=== PATIENT | male | born 1945 | race Caucasian/White ===

== ENCOUNTER 2018-02-02 09:00 | Inpatient (IN) | payer MEDICAID ==
[~2018-02-02] VITALS: Ht 172.7 cm; Wt 78.5 kg
[2018-02-02] VITALS (44 sets, daily range): BP systolic 62–125; BP diastolic 32–82
[2018-02-02] MEDS ORDERED: IV NORMAL SALINE 1000 ML BAG IV ONE ×2 (09:15→10:30)
--- NOTE | 2018-02-02 09:24 | NUR ---
rt at bedside to suction the pt.
[2018-02-02 09:42] LABS: CARBON DIOXIDE 22 mmol/L (21-32); CHLORIDE 104 mmol/L (98-107); CREATININE 1.2 mg/dL (0.6-1.3); GLUCOSE 177 mg/dL (74-106); POTASSIUM 3.2 mmol/L (3.5-5.1); UREA NITROGEN, BLOOD 25 mg/dL (7-18)
[2018-02-02 09:43] LABS: BASOPHILS # (AUTO) 0.1 K/uL (0.0-8.0); BASOPHILS % (AUTO) 0.2 % (0.0-2.0); EOSINOPHILS # (AUTO) 0.2 K/uL (0.0-0.7); HEMATOCRIT 41.4 % (36.7-47.1)
[2018-02-02 09:45] LABS: EOSINOPHILS % (AUTO) 0.6 % (0.0-7.0); LYMPHOCYTES # (AUTO) 3.9 K/uL (20.0-40.0); LYMPHOCYTES % (AUTO) 12.9 % (20.5-51.5); MEAN CORPUSCULAR HEMOGLOBIN 32.7 uug (23.8-33.4); MEAN CORPUSCULAR HGB CONC 34 g/dL (32.5-36.3); MEAN CORPUSCULAR VOLUME 96.9 fL (73.0-96.2); MONOCYTES # (AUTO) 0.9 K/uL (2.0-10.0); MONOCYTES % (AUTO) 3.2 % (0.0-11.0); NEUTROPHILS # (AUTO) 25.1 K/uL (1.8-8.9); NEUTROPHILS % (AUTO) 83.1 % (38.5-71.5); PLATELET COUNT (AUTO) 313 K/uL (152-348); RED BLOOD CELL COUNT(AUTO) 4.27 MIL/uL (4.06-5.63)
[2018-02-02] MEDS ORDERED: METO25TA6 PO (09:46)
[2018-02-02] MEDS ORDERED: ALBU2.5V38 NEB (09:46)
[2018-02-02] MEDS ORDERED: ACET-2154 GT (09:46)
[2018-02-02] MEDS ORDERED: CRAN3875 GT (09:46)
[2018-02-02] MEDS ORDERED: AMLO10TA2 GT (09:46)
[2018-02-02] MEDS ORDERED: FURO-151 GT (09:46)
[2018-02-02] MEDS ORDERED: RANI150T43 GT (09:46)
[2018-02-02] MEDS ORDERED: OXYC5TAB3 GT (09:46)
[2018-02-02] MEDS ORDERED: DEXT1DRO3 EACHEYE (09:46)
[2018-02-02] MEDS ORDERED: ASPI81TA31 GT (09:46)
[2018-02-02] MEDS ORDERED: MULT-213 GT (09:46)
[2018-02-02] MEDS ORDERED: ACET-2605 GT (09:46)
[2018-02-02] MEDS ORDERED: IPRA0.2S6 NEB (09:46)
[2018-02-02] MEDS ORDERED: MAGN400O6 GT (09:46)
[2018-02-02] MEDS ORDERED: DOCU-141 GT (09:46)
[2018-02-02 09:52] LABS: WHITE BLOOD COUNT (AUTO) 30.1 K/uL (3.6-10.2)
[2018-02-02 09:55] LABS: THYROID STIMULATING HORMONE 4.783 mIU/mL (0.358-3.740)
[2018-02-02 09:59] LABS: ALANINE AMINOTRANSFERASE 32 U/L (16-63); ALKALINE PHOSPHATASE 168 U/L (50-136); ASPARTATE AMINOTRANSFERASE 32 U/L (15-37); BILIRUBIN,DIRECT 0.2 mg/dL (0.0-0.2); BILIRUBIN,TOTAL 0.8 mg/dL (0.2-1.0); TOTAL PROTEIN, SERUM 7.9 g/dL (6.4-8.2)
[2018-02-02] MEDS ORDERED: AZITHROMYCIN IV 500 MG in IV DEXTROSE 5% 250 ML IV ONE (10:00)
[2018-02-02] MEDS ORDERED: CEFTRIAXONE 1 G in IV DEXTROSE 5% 50 ML IV ONE (10:00)
--- NOTE | 2018-02-02 10:06 | NUR ---
mouna hunt called dr. bahena for consult. dr. bahena not available.
[2018-02-02] MEDS ORDERED: AZITHROMYCIN 500 MG VIAL IV ONE (10:10)
[2018-02-02] MEDS ORDERED: LEVETIRACETAM 500 MG/5 ML VIAL IV ONE (10:10)
[2018-02-02] MEDS ORDERED: CEFTRIAXONE 1 G VIAL ONE (10:11)
[2018-02-02] MEDS ORDERED: LEVETIRACETAM IV 500 MG in IV DEXTROSE 5% 100 ML IV ONE (10:15)
[2018-02-02 10:19] LABS: ABG BASE EXCESS -7.9 mmol/L; ABG HCO3 17.5 mmol/L; ABG PCO2 35.8 mmHg (35.0-45.0); ABG PH 7.308 (7.350-7.450); ABG PO2 60.3 mmHg (75.0-100.0); ABG SITE LEFT RADIAL; ABG TOTAL HEMOGLOBIN 13.3 G/dL (13.5-18.0); COHb 1.3 % (0.5-1.5); MetHb 0.2 % (0.0-1.5); O2Hb 88.1 % (94.0-97.0)
[2018-02-02] MEDS ORDERED: NOREPINEPHRINE BITARTRATE 4 MG in IV DEXTROSE 5% 250 ML IV ONE (10:30)
[2018-02-02] MEDS ORDERED: PIPERACILLIN SODIUM/TAZOBACTAM 3.375 G in IV DEXTROSE 5% 50 ML IV ONE (10:30)
[2018-02-02 10:42] LABS: *BILIRUBIN,URIN NEGATIVE (NEGATIVE); *BLOOD, URINE 2+ (NEGATIVE); *CLARITY,URINE CLOUDY (CLEAR); *COLOR,URINE YELLOW (YELLOW); *KETONES,URINE NEGATIVE (NEGATIVE); *PROTEIN,URINE 1+ (NEGATIVE); *UROBILINOGEN,URINE 0.2 E.U./dl (NORMAL); LEUKOCYTE ESTERASE ,URINE 3+ (NEGATIVE); NITRITE, URINE NEGATIVE (NEGATIVE); PH,URINE 6.5 (5.0-8.0); UGLUCOSE NEGATIVE (NEGATIVE)
[2018-02-02 11:02] LABS: BACTERIA,URINE MODERATE /HPF (NONE SEEN); SQUAMOUS EPITHELIAL CELL,UR FEW /HPF (NONE SEEN); WBC,URINE TNTC /HPF (0-3)
[2018-02-02] MEDS ORDERED: PIPERACILLIN/TAZOBACTAM/D5W 50 ML IV ONE (11:16)
--- NOTE | 2018-02-02 11:21 | NUR ---
Nikki bourne in [facility] - 02/02/18 at 1252 by JESSICA increased the levophed to 10mcg/min
[2018-02-02 11:25] LABS: BAND % (MANUAL) 7 % (0-10); LYMPHOCYTES % (MANUAL) 9 % (20-40); MONOCYTES % (MANUAL) 2 % (2-10); NEUTROPHILS % (MANUAL) 82 % (42-75)
--- NOTE | 2018-02-02 11:43 | NUR ---
increased the levophed drip from 5 to 8mcg to maintain the desired bp.
--- NOTE | 2018-02-02 12:20 | NUR ---
the colostomy bag the pt came with is leaking. removed it, cleansed the area and placed a new one. small amount fresh blood noticed at the stoma.
--- NOTE | 2018-02-02 12:21 | NUR ---
increased the levphed to 10 mcg/min
--- NOTE | 2018-02-02 12:56 | NUR ---
At this time patient patient brought in from ER levophed with concentration of 4mg /250 at 10mcg/min. SBP 81/47, HR, 94, RR 22. temp of 97.6 Axillary. IV line to RFA G 20 infiltrated. Skip Ray notified. Awaiting for Central line insertion.
[2018-02-02] MEDS ORDERED: NOREPINEPHRINE BITARTRATE 8 MG in IV DEXTROSE 5% 500 ML IV ONE (13:15)
--- NOTE | 2018-02-02 13:59 | NUR ---
Dr. Valdivia in the unit to examine patient. report given.
--- NOTE | 2018-02-02 14:50 | NUR ---
Chest xray for Central line. line placement done at this time Dr. Valdivia present orders to use Central line received.
[2018-02-02] MEDS ORDERED: ONDANSETRON 4 MG/2 ML VIAL IV PRN (15:00)
[2018-02-02] MEDS ORDERED: VANCOMYCIN IV 1 G in PREMIXED 0 EACH IV SCH (15:00)
--- NOTE | 2018-02-02 15:13 | NUR ---
CLINICAL PHARMACY NOTE: VANCOMYCIN DOSING Request for vancomycin dosing on 72 y/o male 5'8" 160 lbs for sepsis Temp 98.5 BUN 25 Scr 1.2 WBC 30.1 bands 7 also on Merrem. Start vancomycin 1gm ivpb q18 hours estimated trough 14.97. Will order trough level prior to 4th dose. Will continue to monitor
[2018-02-02] MEDS: MEROPENEM 1 G in IV NORMAL SALINE 100 ML IV SCH ×2 (15:23→21:10)
--- NOTE | 2018-02-02 15:25 | NUR ---
ZITHROMAX not administered pt. in from E.R. at 1256. pharmacist notified of pt's time of arrival to unit as report obtained from Er. rn. no endorsement to follow up administration received.
[2018-02-02] MEDS: IV NS 1000 ML 1,000 ML IV PRN (15:33)
[2018-02-02] MEDS: NOREPINEPHRINE BITARTRATE 8 MG in IV DEXTROSE 5% 500 ML IV PRN (16:06)
[2018-02-02] MEDS: VANCOMYCIN IV 1 G in PREMIXED 0 EACH IV SCH (17:19)
--- NOTE | 2018-02-02 20:00 | NUR ---
More awake with eyes open; does not follow commands. Resp easy and regular. O2 15 L/min @ 60 % FIO2 per trach collar. Remains on Levophed drip for BP maintenance, NS at 150 ml/hr for hydration. NPO, GTube is clamped. Active colostomy, has liquid stools. Noted extravasation on right antecubital/forearm area at previous Levophed site. Appropriate nursing care rendered to site and Dr. Ray notified. Nursing comfort measures observed at all times. Aspiration precautions maintained. Please see CCU flowsheet for full assessment and clinical data.
[2018-02-02] MEDS: HYDROCORTISONE SOD SUCCINATE 100 MG/2 ML VIAL IV SCH (20:04)
[2018-02-02] MEDS: ENOXAPARIN SODIUM 40 MG/0.4 ML DISP.SYRIN SQ SCH (21:10)
[2018-02-02] MEDS ORDERED: NITROGLYCERIN OINT 1 GM PACKET TP ONE ×2 (22:45→23:15)
[2018-02-03] VITALS (72 sets, daily range): BP systolic 80–120; BP diastolic 40–74
--- NOTE | 2018-02-03 00:01 | NUR ---
Right forearm noted looking much improved. Pt's BP readily drops with Nitrobid application and Levophed titrated accordingly. Please see VS trends.
[2018-02-03] MEDS: IV NS 1000 ML 1,000 ML IV PRN ×3 (00:42→15:09)
[2018-02-03] MEDS ORDERED: NOREPINEPHRINE BITARTRATE 4 MG/4 ML VIAL IV ONE (02:02)
--- NOTE | 2018-02-03 03:30 | NUR ---
RT attempted to wean down O2 to 40% with no success. O2 sat down as low as 90% and thus returned to baseline FIO2 60%. Will continue to monitor closely.
[2018-02-03] MEDS: NOREPINEPHRINE BITARTRATE 8 MG in IV DEXTROSE 5% 500 ML IV PRN ×3 (04:01→15:08)
[2018-02-03] MEDS: NITROGLYCERIN OINT 1 GM PACKET TP SCH ×5 (04:02→20:36)
[2018-02-03] MEDS: Z GUARD REMEDY PASTE 57 GM TUBE TOP PRN ×2 (04:04→20:36)
[2018-02-03 05:21] LABS: BASOPHILS % (AUTO) 0.1 % (0.0-2.0); HEMATOCRIT 29.3 % (36.7-47.1); HEMOGLOBIN 9.9 g/dL (12.5-16.3); LYMPHOCYTES # (AUTO) 1.3 K/uL (20.0-40.0); LYMPHOCYTES % (AUTO) 5.5 % (20.5-51.5); MEAN CORPUSCULAR HEMOGLOBIN 32.3 uug (23.8-33.4); MEAN CORPUSCULAR HGB CONC 34 g/dL (32.5-36.3); MEAN CORPUSCULAR VOLUME 95.9 fL (73.0-96.2); MONOCYTES # (AUTO) 1.3 K/uL (2.0-10.0); MONOCYTES % (AUTO) 5.3 % (0.0-11.0); NEUTROPHILS # (AUTO) 21.7 K/uL (1.8-8.9); NEUTROPHILS % (AUTO) 89.1 % (38.5-71.5); PLATELET COUNT (AUTO) 161 K/uL (152-348); RED BLOOD CELL COUNT(AUTO) 3.06 MIL/uL (4.06-5.63); WHITE BLOOD COUNT (AUTO) 24.4 K/uL (3.6-10.2)
[2018-02-03 05:27] LABS: ALANINE AMINOTRANSFERASE 28 U/L (16-63); ALKALINE PHOSPHATASE 100 U/L (50-136); ASPARTATE AMINOTRANSFERASE 27 U/L (15-37); BILIRUBIN,TOTAL 0.4 mg/dL (0.2-1.0); CARBON DIOXIDE 17 mmol/L (21-32); CHLORIDE 110 mmol/L (98-107); CHOLESTEROL 68 mg/dL (<200); CREATININE 1.6 mg/dL (0.6-1.3); GLUCOSE 185 mg/dL (74-106); HDL CHOLESTEROL 29 mg/dL (40-60); MAGNESIUM 1.4 mg/dL (1.8-2.4); PHOSPHOROUS 3.4 mg/dL (2.5-4.9); POTASSIUM 3.7 mmol/L (3.5-5.1); TOTAL PROTEIN, SERUM 5.6 g/dL (6.4-8.2); TRIGLYCERIDES 46 MG/DL (30-150); UREA NITROGEN, BLOOD 33 mg/dL (7-18)
[2018-02-03] MEDS: MEROPENEM 1 G in IV NORMAL SALINE 100 ML IV SCH ×3 (05:32→22:41)
--- NOTE | 2018-02-03 06:00 | NUR ---
Tolerated well AM care procedures. Please see CCU flowsheet and IV spreadsheet for trends and clinical data.
[2018-02-03] MEDS: HYDROCORTISONE SOD SUCCINATE 100 MG/2 ML VIAL IV SCH (08:26)
[2018-02-03] MEDS: FLUDROCORTISONE ACETATE 0.1 MG TABLET PO SCH (08:27)
[2018-02-03] MEDS: ACETAMINOPHEN 650 MG SUPP.RECT RC PRN (08:36)
--- NOTE | 2018-02-03 12:52 | NUR ---
Dr. Skip Ray in the unit to examine patient, full report given.
[2018-02-03] MEDS: VANCOMYCIN IV 1 G in PREMIXED 0 EACH IV SCH (14:58)
[2018-02-03] MEDS: MAGNESIUM SULFATE/D5W 100 ML IV SCH ×2 (15:03→15:52)
--- NOTE | 2018-02-03 15:16 | NUR ---
Clinical pharmacy note-Vancomycin dosing per pharmacy Subjective: To continue Vancomycin dosing on this patient for sepsis(septic shock) with UTI. Objective; BUN 33 Scr 1.6 WBC 24.4 Temp 100.5 Ht 5'8" Wt 165 lbs Assessment/Plan: Since renal function is further decreased(1.6 vs 1.2), will decrease dose to 1gram every 22hrs from 1 gram every 18hrs. Second dose will be tomorrow at 1300. Vancomycin trough by 4th dose(not ordered yet) for expected trough around 15. Will monitor renal function closely to adjust the dose if needed. Otherwise will follow the trough for further dosing.
--- NOTE | 2018-02-03 20:00 | NUR ---
Eyes open but does not follow commands. Trach intact, midline. On cool mist titrated O2 down to 50%. Trach secretions large to moderate thick yellow secretions, pink tinged. Off vasopressor. NPO with GTube intact. Will need to address nutritional support. Turned/positioned q 2hr and PRN. Nursing comfort measures observed at all times.
[2018-02-03] MEDS: ENOXAPARIN SODIUM 40 MG/0.4 ML DISP.SYRIN SQ SCH (20:37)
--- NOTE | 2018-02-03 20:40 | NUR ---
PT ON CONT P/MIST WITH SHILEY #6 TRACH/ SUCTIONED PINKISH TINGE SECRETIONS, VERY LIGHT BLOODY STREAK, TITRATE TO 50%, GOOD OXYGENATION , SAT 98%. Ever MCKEONP Addendum: 02/03/18 at 2040 by MARY RAMOS RT Amended: Links added.
[2018-02-04] VITALS (43 sets, daily range): BP systolic 86–155; BP diastolic 40–76
[2018-02-04] MEDS: IV NS 1000 ML 1,000 ML IV PRN ×3 (00:03→18:18)
[2018-02-04 05:10] LABS: BASOPHILS % (AUTO) 0.2 % (0.0-2.0); EOSINOPHILS # (AUTO) 0.2 K/uL (0.0-0.7); EOSINOPHILS % (AUTO) 1.3 % (0.0-7.0); HEMATOCRIT 22.6 % (36.7-47.1); HEMOGLOBIN 7.6 g/dL (12.5-16.3); LYMPHOCYTES # (AUTO) 1.3 K/uL (20.0-40.0); LYMPHOCYTES % (AUTO) 8.1 % (20.5-51.5); MEAN CORPUSCULAR HEMOGLOBIN 32.4 uug (23.8-33.4); MEAN CORPUSCULAR HGB CONC 34 g/dL (32.5-36.3); MEAN CORPUSCULAR VOLUME 95.9 fL (73.0-96.2); MONOCYTES # (AUTO) 1.1 K/uL (2.0-10.0); MONOCYTES % (AUTO) 7.1 % (0.0-11.0); NEUTROPHILS % (AUTO) 83.3 % (38.5-71.5); PLATELET COUNT (AUTO) 94 K/uL (152-348); WHITE BLOOD COUNT (AUTO) 15.6 K/uL (3.6-10.2)
[2018-02-04 05:23] LABS: RED BLOOD CELL COUNT(AUTO) 2.35 MIL/uL (4.06-5.63)
[2018-02-04 05:30] LABS: CARBON DIOXIDE 18 mmol/L (21-32); CHLORIDE 115 mmol/L (98-107); CREATININE 0.9 mg/dL (0.6-1.3); GLUCOSE 100 mg/dL (74-106); MAGNESIUM 1.9 mg/dL (1.8-2.4); PHOSPHOROUS 1.6 mg/dL (2.5-4.9); POTASSIUM 3.3 mmol/L (3.5-5.1); UREA NITROGEN, BLOOD 23 mg/dL (7-18)
--- NOTE | 2018-02-04 06:00 | NUR ---
Continues to have large thick yellow blood-tinged secretions; frequent oral and trach care done. Able to cough up secretions. Remains on low dose Levophed, will continue to observe closely. Please see CCU flowsheet for trends and clinical data.
[2018-02-04] MEDS: Z GUARD REMEDY PASTE 57 GM TUBE TOP PRN (06:34)
[2018-02-04] MEDS: MEROPENEM 1 G in IV NORMAL SALINE 100 ML IV SCH ×3 (06:34→21:53)
[2018-02-04] MEDS: HYDROCORTISONE SOD SUCCINATE 100 MG/2 ML VIAL IV SCH (08:16)
[2018-02-04] MEDS: FLUDROCORTISONE ACETATE 0.1 MG TABLET PO SCH (08:17)
--- NOTE | 2018-02-04 09:45 | NUR ---
A call from Nemesio Wagner [facility]. [phone] Nemesio requested and update on pt's condition. Addendum: 02/04/18 at 1739 by ISRAEL MCCONNELL RN Nemesio left a number to call if patient down graded for transfer. [phone].
--- NOTE | 2018-02-04 10:02 | NUR ---
Clinical pharmacy note-Vancomycin dosing per pharmacy Subjective: To continue Vancomycin dosing on this patient for sepsis(septic shock) with UTI. Objective; BUN 23 Scr 0.9 WBC 15.6 Temp 98.1 Ht 5'8" Wt 165 lbs Assessment/Plan: Since renal function drastically improved (1.6 to 0.9 today), will increase regimen to 1gram every 14hr from 1 gram every 22hrs. First dose today at 1000. Vancomycin trough by 4th dose(not ordered yet) for expected trough around 15. Will monitor renal function closely to adjust the dose if needed. Otherwise will follow the trough for further dosing.
--- NOTE | 2018-02-04 10:30 | NUR ---
Dr. Skip maxwell in the unit to examine patient; full report given.
[2018-02-04] MEDS: VANCOMYCIN IV 1 G in PREMIXED 0 EACH IV SCH (10:49)
--- NOTE | 2018-02-04 10:59 | NUR ---
DR. Wells in the unit to examine patient, report given orders received and carried out. See order history.
--- NOTE | 2018-02-04 12:00 | NUR ---
Dr. Wells in the unit to examine patient; full report given orders received and carried out.
[2018-02-04] MEDS: POTASSIUM CHLORIDE 50 ML IV SCH ×2 (12:08→13:01)
[2018-02-04] MEDS ORDERED: VANCOMYCIN IV 1 G in PREMIXED 0 EACH IV SCH (13:00)
[2018-02-04] MEDS ORDERED: SODIUM PHOSPHATE MM 15 MM in IV DEXTROSE 5% 250 ML IV ONE (16:30)
--- NOTE | 2018-02-04 17:34 | NUR ---
A call from Dipika Smith pillowcase maker at [facility] A# [phone]. Full update on pt's condition given she was also informed that patient still under ICU observation.
[2018-02-04] MEDS: ENOXAPARIN SODIUM 40 MG/0.4 ML DISP.SYRIN SQ SCH (21:51)
--- NOTE | 2018-02-04 22:53 | NUR ---
Noted elevation in temperature and new onset of uticaria to upper extremities. Stopped blood transfusion immediately and called MD. Orders received and implemented. Will continue to monitor.
[2018-02-04] MEDS ORDERED: diphenhydrAMINE 50 MG/1 ML VIAL IV PRN (23:00)
[2018-02-04] MEDS: ACETAMINOPHEN 650 MG SUPP.RECT RC PRN (23:00)
[2018-02-05] VITALS (12 sets, daily range): BP systolic 99–151; BP diastolic 43–86
[2018-02-05] MEDS: VANCOMYCIN IV 1 G in PREMIXED 0 EACH IV SCH ×2 (00:20→14:11)
[2018-02-05] MEDS: IV NS 1000 ML 1,000 ML IV PRN ×2 (00:21→09:18)
--- NOTE | 2018-02-05 00:27 | NUR ---
Per protocol, blood samples obtained via venipuncture by receiving lead for repeat ABO and direct antiglobulin test as well as urine specimen via Lane cath port for UA. Awaiting results. Continue to monitor.
--- NOTE | 2018-02-05 01:00 | NUR ---
Patient remains stable and in no acute distress. Continue close monitoring.
[2018-02-05 01:08] LABS: *BILIRUBIN,URIN NEGATIVE (NEGATIVE); *BLOOD, URINE 2+ (NEGATIVE); *CLARITY,URINE SLIGHTLY CLOUDY (CLEAR); *COLOR,URINE YELLOW (YELLOW); *KETONES,URINE 1+ (NEGATIVE); *PROTEIN,URINE 2+ (NEGATIVE); *UROBILINOGEN,URINE 0.2 E.U./dl (NORMAL); LEUKOCYTE ESTERASE ,URINE NEGATIVE (NEGATIVE); NITRITE, URINE NEGATIVE (NEGATIVE); UGLUCOSE NEGATIVE (NEGATIVE)
[2018-02-05 01:42] LABS: BACTERIA,URINE NONE SEEN /HPF (NONE SEEN); MUCUS,URINE FEW /LPF (0-FEW); RBC,URINE 50-80 /HPF (0-3); SQUAMOUS EPITHELIAL CELL,UR FEW /HPF (NONE SEEN)
[2018-02-05 05:37] LABS: BASOPHILS % (AUTO) 0.3 % (0.0-2.0); EOSINOPHILS # (AUTO) 0.6 K/uL (0.0-0.7); EOSINOPHILS % (AUTO) 5.1 % (0.0-7.0); HEMATOCRIT 21.7 % (36.7-47.1); LYMPHOCYTES # (AUTO) 1.3 K/uL (20.0-40.0); MEAN CORPUSCULAR HEMOGLOBIN 32.3 uug (23.8-33.4); MEAN CORPUSCULAR HGB CONC 34 g/dL (32.5-36.3); MEAN CORPUSCULAR VOLUME 95.1 fL (73.0-96.2); MONOCYTES # (AUTO) 0.8 K/uL (2.0-10.0); MONOCYTES % (AUTO) 7.3 % (0.0-11.0); NEUTROPHILS # (AUTO) 8.8 K/uL (1.8-8.9); NEUTROPHILS % (AUTO) 76.3 % (38.5-71.5); PLATELET COUNT (AUTO) 81 K/uL (152-348); WHITE BLOOD COUNT (AUTO) 11.6 K/uL (3.6-10.2)
[2018-02-05 05:45] LABS: HEMOGLOBIN 7.4 g/dL (12.5-16.3); RED BLOOD CELL COUNT(AUTO) 2.28 MIL/uL (4.06-5.63)
[2018-02-05 05:58] LABS: CARBON DIOXIDE 19 mmol/L (21-32); CHLORIDE 116 mmol/L (98-107); CREATININE 0.8 mg/dL (0.6-1.3); GLUCOSE 80 mg/dL (74-106); MAGNESIUM 1.8 mg/dL (1.8-2.4); PHOSPHOROUS 1.6 mg/dL (2.5-4.9); UREA NITROGEN, BLOOD 16 mg/dL (7-18)
[2018-02-05] MEDS: MEROPENEM 1 G in IV NORMAL SALINE 100 ML IV SCH ×2 (06:08→13:18)
--- NOTE | 2018-02-05 07:15 | NUR ---
Report received from Carlotta MARINA, 72 yr old male was admitted on 02/02/18 for Sepsis and UTI. Patient had been off levophed 24hrs ago. Patient is awake but aphasic. can only say nooooo. moves right hand purposefully. O2 at 40% fio2 10liter flow/min. has a lot of secretions able to cough . tracheostomy tube intact portex #6. ekg sinus rhythm with pacs. IV NS infusing at 150ml/hr. crews catheter intact. Addendum: 02/05/18 at 1152 by RACHEAL MCKENZIE RN Amended: Links added.
[2018-02-05] MEDS: HYDROCORTISONE SOD SUCCINATE 100 MG/2 ML VIAL IV SCH (08:52)
[2018-02-05] MEDS: FLUDROCORTISONE ACETATE 0.1 MG TABLET PO SCH (08:52)
[2018-02-05] MEDS: POTASSIUM PHOSPHATE MM 7.5 MMOL in IV DEXTROSE 5% 100 ML IV SCH ×2 (10:54→14:11)
--- NOTE | 2018-02-05 11:00 | NUR ---
kphosphate started for replacement. 1st bag of 2 hung Addendum: 02/05/18 at 1206 by RACHEAL MCKENZIE RN Amended: Links added.
--- NOTE | 2018-02-05 12:00 | NUR ---
PT FIO2 WAS TITRATED DONE TO 40% PER RN REQUEST. RT WILL TITRATED DOWN WITH MD ORDER TO TITRATED FIO2. PT TOLERATED WELL NO DISTRESS NOTED PT SPO2 99% NO DISTRESS NOTED . PT TRACH CARE WAS DONE PT WAS SUCTION WILL CONTINUE TO MONITOR PT. PT TRACH SECURED AND INTACT WITH TIE.
--- NOTE | 2018-02-05 12:00 | NUR ---
Patient in to room 203 from ICU observation vital signs stable. see vital signs documentation. patient in with Central line infusion with Normal saline at 150cc/hr. KPHOS replacement running. Will continue with plan of care.
--- NOTE | 2018-02-05 12:20 | NUR ---
transferred to room 203 [facility] bed Addendum: 02/05/18 at 1227 by RACHEAL MCKENZIE RN Amended: Links added.
[2018-02-05] MEDS ORDERED: CEFT1VIA15 IV (13:31)
--- NOTE | 2018-02-05 13:46 | NUR ---
Clinical pharmacy note-Vancomycin dosing per pharmacy Subjective: To continue Vancomycin dosing on this patient for sepsis(septic shock) with UTI. Objective; BUN 16 Scr 0.8 WBC 11.6 Temp 99.6 Ht 5'8" Wt 165 lbs Assessment/Plan: Since renal function is stable, will continue 1gram every 14hr .Third dose today at 1400. Vancomycin trough by 4th dose(ordered for tomorrow at 0330) for expected trough around 15. Will monitor renal function closely to adjust the dose if needed. Otherwise will follow the trough for further dosing.
--- NOTE | 2018-02-05 16:13 | NUR ---
A call to [facility] and report given to Ron Jimenez patient will be admitted to this facility under Dr. Micah Mahmood and going to room 209A. full report given and need for blood transfusion endorse to walter Jimenez. She was informed that patient is going with Portex #6 to aerosol mask 12 liters 40%. and with Central line 3 lumen, crews to gravity. And estimated time to flower picker patient is 1630.
--- NOTE | 2018-02-05 17:31 | NUR ---
Transport ACLS 119 in the unit to product picker patient; full bedside report given. patient left via gurney accompanied by ambulance personnel. vitals signs stable. Central line emptied line patent and infusing with Normal saline at tko. crews catheter with 350 cc urine emptied. No skin breakdown. Patient awake and alert nodding yes or no to close ended questions.
== END 2018-02-05 17:38 | disposition short-term general hospital (02) | DRG 720 ==
LOC: ER 09:00 → CCU 12:19 → TELE 02-05 12:30
PROVIDERS: ADMIT Nurse Practitioner Acute Care; ATTEND Nurse Practitioner Acute Care
PROC: 05HN33Z Insertion of Infusion Device into Left Internal Jugular Vein, Percutaneous Approach (ICD-10-PCS; principal; 2018-02-02)
PROC: 30243N1 Transfusion of Nonautologous Red Blood Cells into Central Vein, Percutaneous Approach (ICD-10-PCS; 2018-02-04)
DX: A41.9 Sepsis, unspecified organism (principal); N17.0 Acute kidney failure with tubular necrosis; J96.21 Acute and chronic respiratory failure with hypoxia; R65.21 Severe sepsis with septic shock; Z93.0 Tracheostomy status; G93.41 Metabolic encephalopathy; N39.0 Urinary tract infection, site not specified; B95.4 Other streptococcus as the cause of diseases classified elsewhere; B96.89 Other specified bacterial agents as the cause of diseases classified elsewhere; Z93.3 Colostomy status; Z93.1 Gastrostomy status; N18.9 Chronic kidney disease, unspecified; Z79.82 Long term (current) use of aspirin; E87.6 Hypokalemia; E03.9 Hypothyroidism, unspecified; D64.9 Anemia, unspecified; F09 Unspecified mental disorder due to known physiological condition; G93.89 Other specified disorders of brain; Z87.820 Personal history of traumatic brain injury
CPT/HCPCS: 36415; 36556; 36600; 70030-TC; 70450; 71045; 83605; 83735; 84100; 84443; 85025; 85730; 86078; 86850; 86880; 86900; 86901; 86920; 87040; 87077; 87086; 93005; 93307; A4217; A4663; J0456; J0696; J1200; J1650; J1720; J1953; J2185; J2543; J3370; J3475; J3480; J3490; J7030; J7050; J7060; P9016-BL; P9021